=== PATIENT | male | born 1975 | race Caucasian/White ===

== ENCOUNTER 2024-03-25 11:03 | Emergency (ER) | payer BC, SELFPAY ==
--- NOTE | ~2024-03-25 | CT_ITS ---
EXAMINATION: CT abdomen pelvis w con DATE: 03/25/2024 12:05 INDICATION: Umbilical hernia. Abdominal pain. Nausea and vomiting. TECHNIQUE: Computed tomography (CT) of the abdomen and pelvis was performed with 100 mL Omnipaque 350 intravenous contrast. Automated exposure control and iterative reconstruction technique were employe d. The dose-length product was 1274.35 mGy-cm. COMPARISON: None. FINDINGS: The visualized portions of lung bases demonstrate mild atelectasis. Calcified pulmonary nod ules and calcified hilar mediastinal lymph nodes are consistent with old granulomatous disease. No pl eural effusion. The heart size is normal. No pericardial effusion. There is mild elevation of left he midiaphragm. The liver demonstrates diffuse steatosis. Calcifications in the spleen are consistent wi th old granulomatous disease. The gallbladder, pancreas, and adrenal glands are normal. There are cys ts in the kidneys measuring up to 1.9 cm on the left. There is an umbilical hernia containing fat. Th ere are bilateral inguinal hernias containing fat. There is diverticulosis of the colon without evide nce of diverticulitis. The appendix is normal. There are no dilated loops of bowel. There are no path ologically enlarged lymph nodes. There is no free intraperitoneal fluid. There is moderate lower lumb ar spondylosis. IMPRESSION: 1. Umbilical hernia and bilateral inguinal hernias containing fat. Reviewed, dictated and finalized at location A.
[2024-03-25 11:17] VITALS: BP 183/123; PULSE 112; RESP 30; TEMP 36.5; O2SAT 99
--- NOTE | 2024-03-25 11:21 | ED.ABDPAIN ---
HPI - Abdominal Pain General Chief Complaint: Abdominal Pain <Val Alvarado PA-C - Last Filed: 03/25/24 11:24> Stated Complaint: abdominal pain <Val Alvarado PA-C - Last Filed: 03/25/24 11:24> Time Seen by Provider: 03/25/24 11:21 <Val Alvarado PA-C - Last Filed: 03/25/24 11:24> Focused HPI: Patient is a 48 y/o male who presents to the ED with c/o periumbilical pain. Patient reports pain began suddenly approx 1 hour ago. Pain radiates through to his back, slightly more around to R lower back. Has never had pain like this before. Reports nausea with dry heaving. Reports diaphoresis. Denies known fever. Denies diarrhea, constipation, difficulty urinating. Patient does have known umbilical hernia. States it has never been firm like this before. GENERAL: Uncomfortable/ill appearing, obese with BMI of 31.7, and in moderate acute distress d/t pain. HEAD: Normocephalic, atraumatic. CHEST: Clear to auscultation. ?No respiratory distress. HEART: Tachycardic with regular rhythm.? ABD: Umbilical hernia present, firm, unable to reduce, focal tenderness with tenderness extending periumbilically. Skin overlying hernia slightly purple/cyanotic appearing. NEURO: ?Alert and oriented x3. Patient screened in triage and initial orders placed.? ?Additional care and disposition to be based upon?diagnostic testing and treatment. <Val Alvarado PA-C - Last Filed: 03/25/24 11:24> Source: patient <Val Alvarado PA-C - Last Filed: 03/25/24 11:24> Mode of arrival: ambulatory <Val Alvarado PA-C - Last Filed: 03/25/24 11:24> Limitations: no limitations <Val Alvarado PA-C - Last Filed: 03/25/24 11:24> History of Present Illness HPI narrative: Agree with the HPI. Normal bowel function. But her pain with probable superior aspect of the umbilicus. <Duy Bingham MD - Last Filed: 03/25/24 13:56> Related Data Allergies/Adverse Reactions: Allergies Allergy/AdvReac Type Severity Reaction Status Date / Time No Known Allergies Allergy Verified 03/25/24 11:58 <Val Alvarado PA-C - Last Filed: 03/25/24 11:24> Review of Systems Review of Systems: All systems reviewed & are unremarkable except as noted in HPI and below <Duy Bingham MD - Last Filed: 03/25/24 13:56> Constitutional: Constitutional: Reports no additional constitutional complaints <Duy Bingham MD - Last Filed: 03/25/24 13:56> ENT: Reports system reviewed and no additional complaints, except as documented <Duy Bingham MD - Last Filed: 03/25/24 13:56> Cardiovascular: Cardiovascular: Reports no additional cardiovascular complaints <Duy Bingham MD - Last Filed: 03/25/24 13:56> Respiratory: Respiratory: Reports no additional respiratory complaints <Duy Bingham MD - Last Filed: 03/25/24 13:56> Gastrointestinal: Gastrointestinal: Reports abdominal pain, Denies bloating, Denies constipation, Denies diarrhea, Denies nausea and Denies vomiting <Duy Bingham MD - Last Filed: 03/25/24 13:56> PMFSH Past Medical History Medical History: Medical History (Updated 03/25/24 @ 13:55 by Duy Bingham MD) Healthy adult male <Val Alvarado PA-C - Last Filed: 03/25/24 11:24> Surgical History Surgical History: Surgical History (Updated 03/25/24 @ 13:51 by Duy Bingham MD) H/O inguinal hernia repair History of tonsillectomy <Val Alvarado PA-C - Last Filed: 03/25/24 11:24> Exam Narrative: GENERAL: uncomfortable-appearing, well-nourished, and in no acute distress. HEAD: Normocephalic, atraumatic. ENT: Mucous membranes moist. CHEST: Clear to auscultation. No respiratory distress. HEART: Regular rate and rhythm. Normal peripheral pulses. ABDOMEN: Soft, tenderness over the umbilicus where there is an incarcerated hernia, nondistended. EXTREMITIES: Normal range of motion. No edema. SKIN: War
[2024-03-25] MEDS: ONDANSETRON INJ 4 MG/2 ML VIAL IV PUSH (11:36)
[2024-03-25] MEDS: HYDROmorphone HCL INJ (*CRX) 1 MG/ML SYR IV PUSH (11:36)
[2024-03-25 11:39] LABS: Basophils Absolute Auto 0.1 K/mm3 (0.0-0.1); Basophils Percent Auto 0.6 % (0.2-1.2); Eosinophils Absolute Auto 0.3 K/mm3 (0-0.3); Hematocrit 49.6 % (42.0-52.0); Hemoglobin 17.6 g/dL (14.0-18.0); Immature Granulocyte Absolute 0.03 K/mm3 (0.00-0.031); Immature Granulocyte Percent A 0.4 % (0-0.5); Lymphocytes Absolute Auto 2.41 K/mm3 (0.9-3.2); Lymphocytes Percent Auto 30.5 % (18.3-44.2); Mean Corpuscular HGB Conc 35.5 g/dl (32-36); Mean Corpuscular Hemoglobin 31.4 pg (26-34); Mean Corpuscular Volume 88.6 fl (80-100); Mean Platelet Volume 9.9 fl (7.4-10.4); Monocytes Percent Auto 12.9 % (2.6-8.5); Neutrophils Absolute Auto 4.1 K/mm3 (1.3-6.7); Neutrophils Percent Auto 51.6 % (45.5-73.1); Platelet Count Result 258 k/mm3 (150-375); Red Cell Distribution Width 12.4 % (11.5-14.5); White Blood Count 7.9 K/mm3 (4.5-10.0)
[2024-03-25 11:47] LABS: Alanine Aminotransferase 47 U/L (6-50); Albumin Level 5.1 g/dL (3.5-5.1); Alkaline Phosphatase 74 U/L (38-126); Anion Gap 16 mmol/L (4-12); Aspartate Amino Transferase 37 U/L (17-59); Bilirubin,Total 1.2 mg/dL (0.2-1.3); Blood Urea Nitrogen 13 mg/dL (9-20); Calcium 9.6 mg/dL (8.4-10.2); Carbon Dioxide 21 mmol/L (22-30); Chloride 103 mmol/L (98-107); Estimated CRCL calculation 108 ml/min; Estimated Glomerular Filt Rate > 60; Glucose 139 mg/dL (65-110); Lipase 122 U/L (23-300); Potassium 4.2 mmol/L (3.4-5.0); Sodium 140 mmol/L (137-145)
[2024-03-25 11:48] LABS: Lactic Acid Reflex 3.6 mmol/L (0.7-2.0)
[2024-03-25 11:51] LABS: INR 0.9
[2024-03-25 11:52] LABS: Partial Thromboplastin Time 22.8 Seconds (22.3-36.8)
[2024-03-25 12:55] VITALS: BP 108/73; PULSE 83; RESP 15; O2SAT 92
[2024-03-25 14:36] LABS: Reflex Lactic Acid Yes or No Add Lactic
== END 2024-03-25 14:08 | disposition home or self-care (01) ==
PROVIDERS: Physician Assistant; Emergency Provider Emergency Medicine; PCP Internal Medicine
DX: K42.9 Umbilical hernia without obstruction or gangrene (principal); K40.20 Bilateral inguinal hernia, without obstruction or gangrene, not specified as recurrent
CPT/HCPCS: 36415; 74177; 80053; 83605; 83690; 85025; 85610; 85730; 96374; 96375; 99284; J1170; J2405; Q9967

== ENCOUNTER 2024-11-23 11:15 | Emergency (ER) | payer BC, SELFPAY ==
--- NOTE | ~2024-11-23 | CT_ITS ---
EXAMINATION: CT abdomen pelvis wo con DATE: 11/23/2024 12:13 INDICATION: Left flank pain TECHNIQUE: Computed tomography (CT) of the abdomen and pelvis was performed without intravenous contr ast. The dose-length product was 933.97 mGy-cm. Automated exposure control and iterative reconstructi on technique were employed. COMPARISON: CT dated 03/25/2024. FINDINGS: There are calcified granulomas in the lung bases. Heart size normal. No significant pleural or pericardial effusion. There is a 2 mm left UVJ stone with mild left hydronephrosis. The liver, spleen, pancreas, adrenal glands are unremarkable. There is a low-density lesion in the ri ght kidney at the upper pole, most likely benign cysts. Gallbladder is present. Nonobstructive bowel gas pattern. Normal appendix. Colonic diverticulosis without evidence for diverticulitis. No signific ant vascular abnormality. No lymphadenopathy. No acute osseous abnormality. IMPRESSION: 1. Left UVJ stone measuring 2 mm with mild hydronephrosis. Reviewed, dictated and finalized at location A.
--- OUTSIDE RECORDS SUMMARY | 2024-11-23 11:26 | XMS_ITS | Data Portability ---
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 Name Role Phone DEVON BARTLETT Primary Care Provider Unavailabl e Assessment Encounter Date Assessment Date Assessment LastModified by Organization Details LastModified Time 10/16/2023 10/16/2023 He will get blood work done he does not remember last colon cancer screening we will try to obtain old records he will see me in 6 months advised to stay up-to-date on flu shot COVID shot tetanus shot regular exercise [email or web address] Not available 10/17/2023 15:31:23 05/03/2024 05/03/2024 he will obtain blood work he says he is up-to-date on his colon cancer screening we will obtain those records healthy lifestyle care instructions. Because of insurance constraints he does not want to see anybody for the finger lesion at this time. He will see me back in 6 months if insurance is figured out otherwise he says he will wait till he gets settled [email or web address] Not available 05/15/2024 12:17:58 11/01/2024 11/01/2024 We will obtain blood work he will see me in 6 months healthy lifestyle care instructions also needs Cologuard blood work follow up 6 months [email or web address] Not available 11/06/2024 16:12:12 Plan of Treatment Reminders Order Date Submit Date Provider Last Modified By Organization Details Last Modified Time Details Appointments ANY 15 2025 11:00A M Devon Bartlett MD Not available Not available Not available Lab PSA, total, serum or plasma 2024 025 ALBERT [facility], [address], [place], [address], 11/02/2024 09:05:37 noninvasi ve colorecta l cancer DNA + occult blood screening , QL, stool 2024 025 [facility] (Colog[facility] Orders Only), [address], [address], [place], [address], 11/22/2024 18:05:30 CMP, serum or plasma 2024 025 [facility], [address], [place], [address], 11/02/2024 09:05:32 lipid panel, serum 2024 025 [facility], [address], [place], [address], 11/02/2024 09:05:31 CBC w/ auto diff 2024 025 [facility], [address], [place], [address], 11/02/2024 09:05:33 CBC w/ auto diff 2023 024 [facility], [address], [place], [address], 06/29/2024 10:16:38 lipid panel, serum 2023 024 [facility], [address], [place], [address], 06/29/2024 10:16:12 CMP, serum or plasma 2023 024 [facility], [address], [place], [address], 06/29/2024 10:15:45 PSA, total, serum or plasma 2023 024 [facility], [address], [place], [address], 10/17/2023 11:12:04 CMP, serum or plasma 2023 024 [facility], [address], [place], [address], 10/17/2023 11:12:02 lipid panel, serum 2023 024 [facility], [address], [place], [address], 10/17/2023 11:12:02 CBC w/ auto diff 2023 024 [facility], [address], [place], [address], 10/17/2023 11:12:04 urinalysi s, microscop ic 2023 024 [facility], [address], [place], [address], 10/17/2023 11:12:03 Referral None recorded. Procedures None recorded. Surgeries open umbilical hernia repair w/mesh (SURG) 2023 024 [facility] (Surgery Sched), [address], [place], [address], 05/11/2024 17:27:10 Imaging None recorded. Medication Orders Zithromax Z-Ruddy 250 mg tablet 2023 024 [id number], [address], [place], [place], [id number], 05/25/2024 10:20:49 Patient TargetsNo targets recorded. Patient Instructions Encounter Date Encounter Id Patient Instructions Last Modified By Organization Details Last Modified Time 05/03/2024 [id number] A healthy lifestyle: care instructions [email or web address] Not available 05/03/2024 15:32:49 11/01/2024 [id number] A healthy lifestyle: care instructions Not available 11/01/2024 12:58:28 Reason for Referral None Reported. Results Created Date Observation Date Name Description Value Unit Range Abnormal Flag Note LastModifiedBy Organization Detail LastModifiedTime 10/16/19 24 10/17/2023 LIPID PANEL cholesterol, total 260 mg/dL 100-19 9 above high normal Not Available [facility] ([facility]) [address] [place], [address], 10/17/2023 11:12:02 10/16/19 24 10/17/2023 LIPID PANEL triglyceride s 91 mg/dL 0-149 Not Available [facility] ([facility]) [address] [place], [address], 10/17/2023 11:12:02 10/16/19 24 10/17/2023 LIPID PANEL HDL cholesterol 48 mg/dL >39 Not Available [facility] ([facility]) [address] [place], [address], 10/17/2023 11:12:02 10/16/19 24 10/17/2023 LIPID PANEL VLDL cholesterol efrem 16 mg/dL 5-40 Not Available [facility] ([facility]) [address] [place], [address], 10/17/2023 11:12:02 10/16/19 24 10/17/2023 LIPID PANEL LDL chol calc ([facility]) 196 mg/dL 0-99 above high normal Not Available [facility] ([facility]) [address] [place], [address], 10/17/2023 11:12:02 10/16/19 24 10/17/2023 LIPID PANEL comment: Commen t Possi ble Famil ial Hyper óscar stero lemia . FH shoul d be suspe cted when fasti ng LDL óscar stero l is above 189 mg/dL or non-H DL óscar stero l is above 219 mg/dL . A famil y histo ry of high sócar stero l and heart disea se in 1st degre e relat james mae be colle cted. J Clin Lipid ol 2011; 5:133 -140 Not Available [facility] ([facility]) [address] [place], [address], 10/17/2023 11:12:02 10/16/19 24 10/17/2023 COMP. METAB OLIC PANEL (14) glucose 97 mg/dL 70-99 Not Available [facility] ([facility]) [address] [place], [address], 10/17/2023 11:12:02 10/16/19 24 10/17/2023 COMP. METAB OLIC PANEL (14) BUN 11 mg/dL 6-24 Not Available [facility] ([facility]) [address] [place], [address], 10/17/2023 11:12:02 10/16/19 24 10/17/2023 COMP. METAB OLIC PANEL (14) creatinine 0.93 mg/dL 0.76-1 .27 Not Available [facility] ([facility]) [address] [place], [address], 10/17/2023 11:12:02 10/16/19 24 10/17/2023 COMP. METAB OLIC PANEL (14) eGFR 100 mL/mi n/1.7 3 >59 Not Available [facility] ([facility]) [address] [place], [address], 10/17/2023 11:12:02 10/16/19 24 10/17/2023 COMP. METAB OLIC PANEL (14) BUN/creatini ne ratio 12 9-20 Not Available [facility] ([facility]) [address] [place], [address], 10/17/2023 11:12:02 10/16/19 24 10/17/2023 COMP. METAB OLIC PANEL (14) sodium 140 mmol/ L 134-14 4 Not Available [facility] ([facility]) [address] [place], [address], 10/17/2023 11:12:02 10/16/19 24 10/17/2023 COMP. METAB OLIC PANEL (14) potassium 4.7 mmol/ L 3.5-5. 2 Not Available [facility] ([facility]) [address] [place], [address], 10/17/2023 11:12:02 10/16/19 24 10/17/2023 COMP. METAB OLIC PANEL (14) chloride 102 mmol/ L 96-106 Not Available [facility] ([facility]) [address] [place], [address], 10/17/2023 11:12:02 10/16/19 24 10/17/2023 COMP. METAB OLIC PANEL (14) carbon dioxide, total 24 mmol/ L 20-29 Not Available [facility] ([facility]) [address] [place], [address], 10/17/2023 11:12:02 10/16/19 24 10/17/2023 COMP. METAB OLIC PANEL (14) calcium 9.7 mg/dL 8.7-10 .2 Not Available [facility] ([facility]) [address] [place], [address], 10/17/2023 11:12:02 10/16/19 24 10/17/2023 COMP. METAB OLIC PANEL (14) protein, total 7.7 g/dL 6.0-8. 5 Not Available [facility] ([facility]) [address] [place], [address], 10/17/2023 11:12:02 10/16/19 24 10/17/2023 COMP. METAB OLIC PANEL (14) albumin 4.7 g/dL 4.1-5. 1 Not Available [facility] ([facility]) [address] [facility], [place], [address], 10/17/2023 11:12:02 10/16/19 24 10/17/2023 COMP. METAB OLIC PANEL (14) globulin, total 3.0 g/dL 1.5-4. 5 Not Available [facility] ([facility]) [address] [facility], [place], [address], 10/17/2023 11:12:02 10/16/19 24 10/17/2023 COMP. METAB OLIC PANEL (14) A/G ratio 1.6 1.2-2. 2 Not Available [facility] ([facility]) [address] [facility], [place], [address], 10/17/2023 11:12:02 10/16/19 24 10/17/2023 COMP. METAB OLIC PANEL (14) bilirubin, total 0.5 mg/dL 0.0-1. 2 Not Available [facility] ([facility]) [address] [facility], [place], [address], 10/17/2023 11:12:02 10/16/19 24 10/17/2023 COMP. METAB OLIC PANEL (14) alkaline phosphatase 71 IU/L 44-121 Not Available [facility] ([facility]) [address] [facility], [place], [address], 10/17/2023 11:12:02 10/16/19 24 10/17/2023 COMP. METAB OLIC PANEL (14) AST (SGOT) 20 IU/L 0-40 Not Available [facility] ([facility]) [address] [facility], [place], [address], 10/17/2023 11:12:02 10/16/19 24 10/17/2023 COMP. METAB OLIC PANEL (14) ALT (SGPT) 42 IU/L 0-44 Not Available [facility] ([facility]) [address] [facility], [place], [address], 10/17/2023 11:12:02 10/16/19 24 10/17/2023 MICRO SCOPI C EXAMI NATIO N WBC None seen /hpf 0-5 Not Available [facility] ([facility]) [address] [facility], [place], [address], 10/17/2023 11:12:03 10/16/19 24 10/17/2023 MICRO SCOPI C EXAMI NATIO N RBC None seen /hpf 0-2 Not Available [facility] ([facility]) [address] [facility], [place], [address], 10/17/2023 11:12:03 10/16/19 24 10/17/2023 MICRO SCOPI C EXAMI NATIO N epithelial cells (non renal) None seen /hpf 0-10 Not Available [facility] ([facility]) [address] [facility], [place], [address], 10/17/2023 11:12:03 10/16/19 24 10/17/2023 MICRO SCOPI C EXAMI NATIO N casts None seen /lpf nonese en Not Available [facility] ([facility]) [address] [facility], [place], [address], 10/17/2023 11:12:03 10/16/19 24 10/17/2023 MICRO SCOPI C EXAMI NATIO N bacteria None seen nonese en/few Not Available [facility] ([facility]) [address] [facility], [place], [address], 10/17/2023 11:12:03 10/16/19 24 10/17/2023 CBC WITH DIFFE RENTI AL/PL ATELE T WBC 5.6 x10e3 /uL 3.4-10 .8 Not Available [facility] ([facility]) [address] [facility], [place], [address], 10/17/2023 11:12:04 10/16/19 24 10/17/2023 CBC WITH DIFFE RENTI AL/PL ATELE T RBC 5.42 x10e6 /uL 4.14-5 .80 Not Available [facility] ([facility]) [address] [place], [address], 10/17/2023 11:12:04 10/16/19 24 10/17/2023 CBC WITH DIFFE RENTI AL/PL ATELE T hemoglobin 16.4 g/dL 13.0-1 7.7 Not Available [facility] ([facility]) [address] [place], [address], 10/17/2023 11:12:04 10/16/19 24 10/17/2023 CBC WITH DIFFE RENTI AL/PL ATELE T hematocrit 47.8 % 37.5-5 1.0 Not Available [facility] ([facility]) [address] [place], [address], 10/17/2023 11:12:04 10/16/19 24 10/17/2023 CBC WITH DIFFE RENTI AL/PL ATELE T MCV 88 fL 79-97 Not Available [facility] ([facility]) [address] [place], [address], 10/17/2023 11:12:04 10/16/19 24 10/17/2023 CBC WITH DIFFE RENTI AL/PL ATELE T MCH 30.3 pg 26.6-3 3.0 Not Available [facility] ([facility]) [address] [place], [address], 10/17/2023 11:12:04 10/16/19 24 10/17/2023 CBC WITH DIFFE RENTI AL/PL ATELE T MCHC 34.3 g/dL 31.5-3 5.7 Not Available [facility] ([facility]) [address] [place], [address], 10/17/2023 11:12:04 10/16/19 24 10/17/2023 CBC WITH DIFFE RENTI AL/PL ATELE T RDW 12.6 % 11.6-1 5.4 Not Available [facility] ([facility]) [address] [facility], [place], [address], 10/17/2023 11:12:04 10/16/19 24 10/17/2023 CBC WITH DIFFE RENTI AL/PL ATELE T platelets 261 x10e3 /uL 150-45 0 Not Available [facility] ([facility]) [address] [facility], [place], [address], 10/17/2023 11:12:04 10/16/19 24 10/17/2023 CBC WITH DIFFE RENTI AL/PL ATELE T neutrophils 51 % notest ab. Not Available [facility] ([facility]) [address] [facility], [place], [address], 10/17/2023 11:12:04 10/16/19 24 10/17/2023 CBC WITH DIFFE RENTI AL/PL ATELE T lymphs 32 % notest ab. Not Available [facility] ([facility]) [address] [facility], [place], [address], 10/17/2023 11:12:04 10/16/19 24 10/17/2023 CBC WITH DIFFE RENTI AL/PL ATELE T monocytes 13 % notest ab. Not Available [facility] ([facility]) [address] [facility], [place], [address], 10/17/2023 11:12:04 10/16/19 24 10/17/2023 CBC WITH DIFFE RENTI AL/PL ATELE T eos 2 % notest ab. Not Available [facility] ([facility]) [address] [facility], [place], [address], 10/17/2023 11:12:04 10/16/19 24 10/17/2023 CBC WITH DIFFE RENTI AL/PL ATELE T basos 1 % notest ab. Not Available [facility] ([facility]) [address] [facility], [place], [address], 10/17/2023 11:12:04 10/16/19 24 10/17/2023 CBC WITH DIFFE RENTI AL/PL ATELE T neutrophils (absolute) 2.9 x10e3 /uL 1.4-7. 0 Not Available [facility] ([facility]) [address] [facility], [place], [address], 10/17/2023 11:12:04 10/16/19 24 10/17/2023 CBC WITH DIFFE RENTI AL/PL ATELE T lymphs (absolute) 1.8 x10e3 /uL 0.7-3. 1 Not Available [facility] ([facility]) [address] [facility], [place], [address], 10/17/2023 11:12:04 10/16/19 24 10/17/2023 CBC WITH DIFFE RENTI AL/PL ATELE T monocytes(ab solute) 0.7 x10e3 /uL 0.1-0. 9 Not Available [facility] ([facility]) [address] [facility], [place], [address], 10/17/2023 11:12:04 10/16/19 24 10/17/2023 CBC WITH DIFFE RENTI AL/PL ATELE T eos (absolute) 0.1 x10e3 /uL 0.0-0. 4 Not Available [facility] ([facility]) [address] [facility], [place], [address], 10/17/2023 11:12:04 10/16/19 24 10/17/2023 CBC WITH DIFFE RENTI AL/PL ATELE T baso (absolute) 0.0 x10e3 /uL 0.0-0. 2 Not Available [facility] ([facility]) [address] [facility], [place], [address], 10/17/2023 11:12:04 10/16/19 24 10/17/2023 CBC WITH DIFFE RENTI AL/PL ATELE T immature granulocytes 1 % notest ab. Not Available [facility] ([facility]) [address] [facility], [place], [address], 10/17/2023 11:12:04 10/16/19 24 10/17/2023 CBC WITH DIFFE RENTI AL/PL ATELE T immature grans (abs) 0.0 x10e3 /uL 0.0-0. 1 Not Available [facility] ([facility]) [address] [facility], [place], [address], 10/17/2023 11:12:04 10/16/19 24 10/17/2023 PROST ATE-S PECIF IC AG prostate specific Ag 0.6 NG/mL 0.0-4. 0 Juan ECLIA metho dolog y. Accor ding to the Ameri can [employer]o g[employer] iatio n, Serum PSA shoul d decre ase and remai n at undet ectab le level s after radic al prost atect vineet. The AUA defin es bioch emica l recur rence as an initi al PSA value 0.2 ng/mL or great er follo wed by a subse quent confi rmato ry PSA value 0.2 ng/mL or great er. Value s obtai duy with diffe rent assay metho ds or kits canno t be used inter dangelo eably . Resul ts canno t be inter prete d as absol [facility] evide nce of the prese nce or absen ce of emerita arellano se. Not Available [facility] ([facility]) [address] [facility], [place], [address], 10/17/2023 11:12:04 11/02/19 25 11/02/2024 LIPID PANEL cholesterol, total 236 mg/dL 100-19 9 above high normal Not Available [facility] ([facility]) [address] [facility], [place], [address], 11/02/2024 09:05:31 11/02/19 25 11/02/2024 LIPID PANEL triglyceride s 94 mg/dL 0-149 Not Available [facility] ([facility]) [address] [place], [address], 11/02/2024 09:05:31 11/02/19 25 11/02/2024 LIPID PANEL HDL cholesterol 47 mg/dL >39 Not Available [facility] ([facility]) [address] [place], [address], 11/02/2024 09:05:31 11/02/19 25 11/02/2024 LIPID PANEL VLDL cholesterol efrem 17 mg/dL 5-40 Not Available [facility] ([facility]) [address] [place], [address], 11/02/2024 09:05:31 11/02/19 25 11/02/2024 LIPID PANEL LDL chol calc ([facility]) 172 mg/dL 0-99 above high normal Not Available [facility] ([facility]) [address] [place], [address], 11/02/2024 09:05:31 11/02/19 25 11/02/2024 COMP. METAB OLIC PANEL (14) glucose 88 mg/dL 70-99 Not Available [facility] ([facility]) [address] [place], [address], 11/02/2024 09:05:32 11/02/19 25 11/02/2024 COMP. METAB OLIC PANEL (14) BUN 12 mg/dL 6-24 Not Available [facility] ([facility]) [address] [place], [address], 11/02/2024 09:05:32 11/02/19 25 11/02/2024 COMP. METAB OLIC PANEL (14) creatinine 0.94 mg/dL 0.76-1 .27 Not Available [facility] ([facility]) [address] [place], [address], 11/02/2024 09:05:32 11/02/19 25 11/02/2024 COMP. METAB OLIC PANEL (14) eGFR 98 mL/mi n/1.7 3 >59 Not Available [facility] ([facility]) [address] [facility], [place], [address], 11/02/2024 09:05:32 11/02/19 25 11/02/2024 COMP. METAB OLIC PANEL (14) BUN/creatini ne ratio 13 9-20 Not Available [facility] ([facility]) [address] [facility], [place], [address], 11/02/2024 09:05:32 11/02/19 25 11/02/2024 COMP. METAB OLIC PANEL (14) sodium 141 mmol/ L 134-14 4 Not Available [facility] ([facility]) [address] [facility], [place], [address], 11/02/2024 09:05:32 11/02/19 25 11/02/2024 COMP. METAB OLIC PANEL (14) potassium 4.6 mmol/ L 3.5-5. 2 Not Available [facility] ([facility]) [address] [facility], [place], [address], 11/02/2024 09:05:32 11/02/19 25 11/02/2024 COMP. METAB OLIC PANEL (14) chloride 104 mmol/ L 96-106 Not Available [facility] ([facility]) [address] [place], [address], 11/02/2024 09:05:32 11/02/19 25 11/02/2024 COMP. METAB OLIC PANEL (14) carbon dioxide, total 21 mmol/ L 20-29 Not Available [facility] ([facility]) [address] [place], [address], 11/02/2024 09:05:32 11/02/19 25 11/02/2024 COMP. METAB OLIC PANEL (14) calcium 10.0 mg/dL 8.7-10 .2 Not Available [facility] ([facility]) [address] [place], [address], 11/02/2024 09:05:32 11/02/19 25 11/02/2024 COMP. METAB OLIC PANEL (14) protein, total 7.7 g/dL 6.0-8. 5 Not Available [facility] ([facility]) [address] [place], [address], 11/02/2024 09:05:32 11/02/19 25 11/02/2024 COMP. METAB OLIC PANEL (14) albumin 4.6 g/dL 3.8-4. 9 Not Available [facility] ([facility]) [address] [place], [address], 11/02/2024 09:05:32 11/02/19 25 11/02/2024 COMP. METAB OLIC PANEL (14) globulin, total 3.1 g/dL 1.5-4. 5 Not Available [facility] ([facility]) [address] [place], [address], 11/02/2024 09:05:32 11/02/19 25 11/02/2024 COMP. METAB OLIC PANEL (14) bilirubin, total 0.8 mg/dL 0.0-1. 2 Not Available [facility] ([facility]) [address] [place], [address], 11/02/2024 09:05:32 11/02/19 25 11/02/2024 COMP. METAB OLIC PANEL (14) alkaline phosphatase 75 IU/L 44-121 Not Available [facility] ([facility]) [address] [place], [address], 11/02/2024 09:05:32 11/02/19 25 11/02/2024 COMP. METAB OLIC PANEL (14) AST (SGOT) 22 IU/L 0-40 Not Available [facility] ([facility]) [address] [place], [address], 11/02/2024 09:05:32 11/02/19 25 11/02/2024 COMP. METAB OLIC PANEL (14) ALT (SGPT) 35 IU/L 0-44 Not Available [facility] ([facility]) [address] [place], [address], 11/02/2024 09:05:32 11/02/19 25 11/02/2024 CBC WITH DIFFE RENTI AL/PL ATELE T WBC 4.8 x10e3 /uL 3.4-10 .8 Not Available [facility] ([facility]) [address] [place], [address], 11/02/2024 09:05:33 11/02/19 25 11/02/2024 CBC WITH DIFFE RENTI AL/PL ATELE T RBC 5.51 x10e6 /uL 4.14-5 .80 Not Available [facility] ([facility]) [address] [place], [address], 11/02/2024 09:05:33 11/02/19 25 11/02/2024 CBC WITH DIFFE RENTI AL/PL ATELE T hemoglobin 16.9 g/dL 13.0-1 7.7 Not Available [facility] ([facility]) [address] [place], [address], 11/02/2024 09:05:33 11/02/19 25 11/02/2024 CBC WITH DIFFE RENTI AL/PL ATELE T hematocrit 49.4 % 37.5-5 1.0 Not Available [facility] ([facility]) [address] [place], [address], 11/02/2024 09:05:33 11/02/19 25 11/02/2024 CBC WITH DIFFE RENTI AL/PL ATELE T MCV 90 fL 79-97 Not Available [facility] ([facility]) [address] [place], [address], 11/02/2024 09:05:33 11/02/19 25 11/02/2024 CBC WITH DIFFE RENTI AL/PL ATELE T MCH 30.7 pg 26.6-3 3.0 Not Available [facility] ([facility]) [address] [facility], [place], [address], 11/02/2024 09:05:33 11/02/19 25 11/02/2024 CBC WITH DIFFE RENTI AL/PL ATELE T MCHC 34.2 g/dL 31.5-3 5.7 Not Available [facility] ([facility]) [address] [facility], [place], [address], 11/02/2024 09:05:33 11/02/19 25 11/02/2024 CBC WITH DIFFE RENTI AL/PL ATELE T RDW 12.8 % 11.6-1 5.4 Not Available [facility] ([facility]) [address] [facility], [place], [address], 11/02/2024 09:05:33 11/02/19 25 11/02/2024 CBC WITH DIFFE RENTI AL/PL ATELE T platelets 259 x10e3 /uL 150-45 0 Not Available [facility] ([facility]) [address] [facility], [place], [address], 11/02/2024 09:05:33 11/02/19 25 11/02/2024 CBC WITH DIFFE RENTI AL/PL ATELE T neutrophils 52 % notest ab. Not Available [facility] ([facility]) [address] [place], [address], 11/02/2024 09:05:33 11/02/19 25 11/02/2024 CBC WITH DIFFE RENTI AL/PL ATELE T lymphs 33 % notest ab. Not Available [facility] ([facility]) [address] [place], [address], 11/02/2024 09:05:33 11/02/19 25 11/02/2024 CBC WITH DIFFE RENTI AL/PL ATELE T monocytes 13 % notest ab. Not Available [facility] ([facility]) [address] [facility], [place], [address], 11/02/2024 09:05:33 11/02/19 25 11/02/2024 CBC WITH DIFFE RENTI AL/PL ATELE T eos 1 % notest ab. Not Available [facility] ([facility]) [address] [place], [address], 11/02/2024 09:05:33 11/02/19 25 11/02/2024 CBC WITH DIFFE RENTI AL/PL ATELE T basos 1 % notest ab. Not Available [facility] ([facility]) [address] [place], [address], 11/02/2024 09:05:33 11/02/19 25 11/02/2024 CBC WITH DIFFE RENTI AL/PL ATELE T neutrophils (absolute) 2.5 x10e3 /uL 1.4-7. 0 Not Available [facility] ([facility]) [address] [place], [address], 11/02/2024 09:05:33 11/02/19 25 11/02/2024 CBC WITH DIFFE RENTI AL/PL ATELE T lymphs (absolute) 1.6 x10e3 /uL 0.7-3. 1 Not Available [facility] ([facility]) [address] [place], [address], 11/02/2024 09:05:33 11/02/19 25 11/02/2024 CBC WITH DIFFE RENTI AL/PL ATELE T monocytes(ab solute) 0.6 x10e3 /uL 0.1-0. 9 Not Available [facility] ([facility]) [address] [place], [address], 11/02/2024 09:05:33 11/02/19 25 11/02/2024 CBC WITH DIFFE RENTI AL/PL ATELE T eos (absolute) 0.1 x10e3 /uL 0.0-0. 4 Not Available [facility] ([facility] [facility]) [address] [place], [address], 11/02/2024 09:05:33 11/02/19 25 11/02/2024 CBC WITH DIFFE RENTI AL/PL ATELE T baso (absolute) 0.0 x10e3 /uL 0.0-0. 2 Not Available [facility] ([facility]) [address] [place], [address], 11/02/2024 09:05:33 11/02/19 25 11/02/2024 CBC WITH DIFFE RENTI AL/PL ATELE T immature granulocytes 0 % notest ab. Not Available [facility] ([facility]) [address] [place], [address], 11/02/2024 09:05:33 11/02/1911/02/2024 CBC WITH DIFFE RENTI AL/PL ATELE T immature grans (abs) 0.0 x10e3 /uL 0.0-0. 1 Not Available [facility] ([facility]) [address] [place], [address], 11/02/2024 09:05:33 11/02/19 25 11/02/2024 PROST ATE-S PECIF IC AG prostate specific Ag 0.6 NG/mL 0.0-4. 0 Juan ECLIA metho dolog y. Accor ding to the [employer]i [employer] n, Serum PSA shoul d decre ase and remai n at undet ectab le level s after radic al prost atect vineet. The AUA defin es bioch emica l recur rence as an initi al PSA value 0.2 ng/mL or great er follo wed by a subse quent confi rmato ry PSA value 0.2 ng/mL or great er. Value s obtai duy with diffe rent assay metho ds or kits canno t be used inter antolin mandujano . Resul ts canno t be inter prete d as absol [facility] ev[facility] nce of the prese nce or absen ce of emerita arellano se. Not Available [facility] ([facility]) [address] [facility], [place], [address], 11/02/2024 09:05:37 03/25/20 24 03/25/2024 CT, abdom en + pelvi s, w/ contr ast No observ ation record ed. [address] [place] [address], [address], 03/28/2024 12:39:25 Result Notes None recorded. Problems Name Problem SNOMED Code Status Onset Date Resolution Date Notes Provider Name and Address Organization Details Recorded Time Sinusitis 66215061 Active 024 Sienna Anne MA null, [place] - [facility] 4 13:15:43 Adult health examination Active 024 Sienna Anne [place] null, [place] - [facility] 4 13:15:44 Problem Notes None recorded. Procedures Surgical History Date Name Laterality Status Provider Name and Address Organization Details Recorded Time 05/11/20 24 OPEN UMBILICAL HERNIA REPAIR W/MESH (SURG) completed Cirilo Kerr MD [address] [place], [address], [facility] - [facility] 05/17/2024 10:29:55 Hernia Repair completed Marilin Hosknis MA [place] - [facility] 10/16/2023 10:46:37 Tonsillectomy completed Marilin Hoskins MA [place] - [facility] 10/16/2023 10:46:46 vasectomy completed Marilin Hoskins MA [place] - [facility] 10/16/2023 10:46:54 Imaging Results Imaging Date Name Status LastModified by Organiz ation Details LastModified Time 03/25/2024 CT, abdomen + pelvis, w/ contrast completed [address], [place], [address], 03/28/2024 12:39:25 Procedure Notes None recorded. Medical Equipment None Reported. Allergies No known drug allergies Medications Name Sig Start Date [id number]|2024-11-23 12:46:00|2024-11-23 12:46:00|PC.NURSE||||"Patient ambulated to the bathroom- was offered a wheelchair and declined stating he preferred to walk "
[2024-11-23] MEDS: MORPHINE SULFATE (*CRX) 4 MG/ML INJ IV PUSH (11:35)
[2024-11-23 11:38] VITALS: BP 144/99; PULSE 86; RESP 19; TEMP 36.6; O2SAT 100
--- NOTE | 2024-11-23 11:38 | PC.NURSE ---
spoke with MAR Dominguez about pain, got an order for pain medication
[2024-11-23] MEDS: HYDROmorphone HCL INJ (*CRX) 2 MG/ML VIAL 1 MG IV PUSH ×2 (11:51→13:08)
--- NOTE | 2024-11-23 11:52 | PC.NURSE ---
CT to room. patient unable to sit still in pain, stated that they would come back to try again. ERP verbally ordered 1mg dilaudid at the bedside if initial pain medication wasn't effective
[2024-11-23 11:55] LABS: Basophils Percent Auto 0.7 % (0.2-1.2); Eosinophils Absolute Auto 0.1 K/mm3 (0-0.3); Eosinophils Percent Auto 1.2 % (0-4.4); Hematocrit 49.2 % (42.0-52.0); Hemoglobin 16.4 g/dL (14.0-18.0); Immature Granulocyte Absolute 0.02 K/mm3 (0.00-0.031); Immature Granulocyte Percent A 0.4 % (0-0.5); Lymphocytes Absolute Auto 2.56 K/mm3 (0.9-3.2); Lymphocytes Percent Auto 45.1 % (18.3-44.2); Mean Corpuscular HGB Conc 33.3 g/dl (32-36); Mean Corpuscular Hemoglobin 29.9 pg (26-34); Mean Corpuscular Volume 89.6 fl (80-100); Mean Platelet Volume 9.9 fl (7.4-10.4); Monocytes Absolute Auto 0.8 K/mm3 (0.1-0.6); Monocytes Percent Auto 13.8 % (2.6-8.5); Neutrophils Absolute Auto 2.2 K/mm3 (1.3-6.7); Neutrophils Percent Auto 38.8 % (45.5-73.1); Platelet Count Result 261 k/mm3 (150-375); Red Blood Count 5.49 M/mm3 (4.6-6.20); Red Cell Distribution Width 12.1 % (11.5-14.5); White Blood Count 5.7 K/mm3 (4.5-10.0)
[2024-11-23 12:13] LABS: Alanine Aminotransferase 93 U/L (6-50); Albumin Level 4.8 g/dL (3.5-5.1); Alkaline Phosphatase 70 U/L (38-126); Anion Gap 12 mmol/L (4-12); Aspartate Amino Transferase 92 U/L (17-59); Blood Urea Nitrogen 14 mg/dL (9-20); Carbon Dioxide 25 mmol/L (22-30); Chloride 104 mmol/L (98-107); Estimated CRCL calculation 92 ml/min; Estimated Glomerular Filt Rate > 60; Glucose 122 mg/dL (65-110); Lipase 141 U/L (23-300); Potassium 3.7 mmol/L (3.4-5.0); Sodium 141 mmol/L (137-145)
[2024-11-23] MEDS: KETOROLAC 15 MG/ML VIAL (*BKC) IV PUSH (13:08)
[2024-11-23] MEDS: ONDANSETRON INJ 4 MG/2 ML VIAL IV PUSH (13:09)
[2024-11-23] MEDS: TAMSULOSIN HCL 0.4 MG CAPSULE PO (13:10)
[2024-11-23 13:26] LABS: Add Urine Microscopic? YES; Appearance Urine Cloudy (Clear); Bacteria Urine None Seen /hpf; Bilirubin Urine Negative (Negative); Blood Urine 3+ (Negative); Calcium Oxalate Crystals Urine Present /hpf; Color Urine Yellow (Yellow); Glucose Urine UA Negative (Negative); Ketones Urine 1+ mg/dL (Negative); Leukocyte Esterase Ur Trace LEU/UL (Negative); Need Manual Microscopic Reviewed; Nitrate Urine Negative (Negative); Non Pathogenic Casts 0-2; Protein Urine Trace mg/dL (Negative); RBC Urine >100 /hpf (0-2); Specific Grav Ur 1.018 (1.001-1.035); Squamous Epithelial Cell Urine None Seen /hpf (Few); WBC Urine 0-5 /hpf (0-3)
[2024-11-23] MEDS: PROCHLORPERAZINE EDISYLATE 10 MG/2 ML VIAL IV PUSH (13:55)
--- NOTE | 2024-11-23 13:55 | ED_ITS ---
HPI - General Adult General Chief complaint: Abdominal Pain Stated complaint: LLQ pain Time Seen by Provider: 11/23/24 11:37 History of Present Illness HPI narrative: Patient 49-year-old gentleman presents emergency department chief complaint of left lower quadrant pain that radiates to his back patient reports the pain started suddenly reports he is unable to get comfortable in any position reports that he got diaphoretic with this reports a prior history of an inguinal hernia repair Related Data Allergies Allergy/AdvReac Type Severity Reaction Status Date / Time No Known Allergies Allergy Verified 11/23/24 11:15 PMFSH Past Medical History Medical History Healthy adult male Surgical History Surgical History H/O inguinal hernia repair History of tonsillectomy Exam 2 Narrative: GENERAL: Uncomfortable-appearing, well-nourished, and in moderate acute pain distress. Diaphoretic HEAD: Normocephalic, atraumatic. EYES: PERRLA and EOMI. ENT: Nares clear, no rhinorrhea or epistaxis. Mucous membranes moist. NECK: Supple. CHEST: Clear to auscultation. No respiratory distress. HEART: Regular rate and rhythm. No murmur heard. Normal peripheral pulses. ABDOMEN: Soft, nontender, nondistended, normal active bowel sounds. EXTREMITIES: Normal range of motion. No edema. SKIN: Warm, dry, no rash. NEURO: No focal deficits. Alert and oriented x3. PSYCH: Normal mood and affect. Course Vital Signs Vital signs: Vital Signs Temperature 36.6 C 11/23/24 11:38 Pulse Rate 86 11/23/24 11:38 Respiratory Rate 19 11/23/24 11:38 Blood Pressure 144/99 H 11/23/24 11:38 Pulse Oximetry 100 11/23/24 11:38 Temperature 36.6 C 11/23/24 11:38 Pulse Rate 74 11/23/24 14:03 Respiratory Rate 18 11/23/24 14:03 Blood Pressure 124/72 11/23/24 14:03 Pulse Oximetry 95 11/23/24 14:03 Medical Decision Making [facility] Narrative Medical decision making narrative: Differential diagnosis includes UTI, pyelonephritis, ureterolithiasis, intra- abdominal infection Laboratory studies were obtained on the patient showed normal CBC CMP showed no acute abnormalities urinalysis showed greater than 100 red Blood cells in the urine Diarrhea pelvis showed a 2 mm stone in the left UVJ Vital Signs Vital Signs: Vital Signs Temperature 36.6 C 11/23/24 11:38 Pulse Rate 86 11/23/24 11:38 Respiratory Rate 19 11/23/24 11:38 Blood Pressure 144/99 H 11/23/24 11:38 Pulse Oximetry 100 11/23/24 11:38 Temperature 36.6 C 11/23/24 11:38 Pulse Rate 74 11/23/24 14:03 Respiratory Rate 18 11/23/24 14:03 Blood Pressure 124/72 11/23/24 14:03 Pulse Oximetry 95 11/23/24 14:03 Lab Data 11/23/24 11:40 11/23/24 11:40 Labs: Lab Results 11/23/24 11/23/24 Range/Units 11:40 12:56 WBC 5.7 (4.5-10.0) K/mm3 RBC 5.49 (4.6-6.20) M/mm3 Hgb 16.4 (14.0-18.0) g/dL Hct 49.2 (42.0-52.0) % MCV 89.6 (80-100) fl MCH 29.9 (26-34) pg MCHC 33.3 (32-36) g/dl RDW 12.1 (11.5-14.5) % Plt Count 261 (150-375) k/mm3 MPV 9.9 (7.4-10.4) fl Immature Gran % (Auto) 0.4 (0-0.5) % Neut % (Auto) 38.8 L (45.5-73.1) % Lymph % (Auto) 45.1 H (18.3-44.2) % [place] % (Auto) 13.8 H (2.6-8.5) % Eos % (Auto) 1.2 (0-4.4) % Baso % (Auto) 0.7 (0.2-1.2) % Lymph # (Auto) 2.56 (0.9-3.2) K/mm3 [place] # (Auto) 0.8 H (0.1-0.6) K/mm3 Eos # (Auto) 0.1 (0-0.3) K/mm3 Baso # (Auto) 0.0 (0.0-0.1) K/mm3 Abs Immat Gran (auto) 0.02 (0.00-0.031) K/mm3 Absolute Neuts (auto) 2.2 (1.3-6.7) K/mm3 Absolute Nucleated RBC 0.000 (0.0-0.012) K/mm3 Nucleated RBC % 0.0 (0.0-0.2) % Sodium 141 (137-145) mmol/L Potassium 3.7 (3.4-5.0) mmol/L Chloride 104 (98-107) mmol/L Carbon Dioxide 25 (22-30) mmol/L Anion Gap 12 (4-12) mmol/L BUN 14 (9-20) mg/dL Creatinine 1.03 (0.7-1.3) mg/dL Estim Creat Clear Calc 92 ml/min Estimated GFR > 60 (59 - ) Glucose 122 H (65-110) mg/dL Calcium 10.0 (8.4-10.2) mg/dL Total Bilirubin 1.0 (0.2-1.3) mg/dL AST 92 H (17-59) U/L ALT 93 H (6-50) U/L Alkaline Phosphatase 70 (38-126) U/L Total Protein 8.0 (6.3-8.2) g/dL Albumin 4.8 (3.5-5.1) g/dL Lipase 141 (23-300) U/L Urine Color Yellow (Yellow) Urine Appearance Cloudy H (Clear) Urine pH 8.0 (5.0-9.0) Ur Specific [place] 1.018 (1.001-1.035) Urine Protein Trace (Negative) mg/dL Urine Glucose (UA) Negative (Negative) mg/dL Urine Ketones 1+ H (Negative) mg/dL Ur Blood (Man) 3+ H (Negative) Urine Nitrate Negative (Negative) Urine Bilirubin Negative (Negative) Urine Urobilinogen 1.0 (<2.0) mg/dL Add Ur Microanalysis Reviewed Leukocyte Esterase Rfl Trace H (Negative) KELBY/UL Urine RBC >100 H (0-2) /hpf Urine WBC 0-5 (0-3) /hpf Ur Squamous Epith Cells None seen (Few) /hpf Calcium Oxalate Crystal Present (None) /hpf Urine Bacteria None seen /hpf Urine Casts 0-2 Discharge Plan Discharge Clinical Impression: Ureterolithiasis Patient Disposition: Home Condition: Stable Instructions: Antibiotic Form, Kidney Stones (ED), How to Strain Your Urine (ED), Flank Pain (ED) Patient Language: Croatian Prescriptions: New hydrocodone-acetaminophen 5-325 mg tablet 1 tablet PO Q6H PRN (Reason: pain) 3 Days Qty: 12 0RF tamsulosin [Flomax] 0.4 mg capsule 0.4 mg PO DAILY Qty: 10 0RF ondansetron 4 mg tablet,disintegrating 4 mg PO Q8H PRN (Reason: nausea and vomiting) Qty: 10 0RF Follow-up/Referrals: Dhruv,MD Jose [Primary Care Provider] - Katrin Staley MD [Physician] - Time of Disposition: 14:51
[2024-11-23 14:03] VITALS: BP 124/72; PULSE 74; RESP 18; O2SAT 95
== END 2024-11-23 15:07 | disposition home or self-care (01) ==
PROVIDERS: Emergency Provider Emergency Medicine; PCP Internal Medicine
DX: N13.2 Hydronephrosis with renal and ureteral calculous obstruction (principal)
CPT/HCPCS: 36415; 74176; 80053; 81001; 83690; 85025; 96374; 96375; 96376; 99284; A9270; J0780; J1171; J1885; J2270; J2405